=== PATIENT | male | born 1960 | race Caucasian/White ===

== ENCOUNTER 2019-09-22 20:57 | Emergency (ER) | payer OTHER, SELFPAY ==
[2019-09-22 20:58] VITALS: BP 129/99; BP 167/99; PULSE 85; RESP 16; RESP 18; TEMP 38.4; O2SAT 93; BMI 35.4
[2019-09-22 21:01] VITALS: O2SAT 95
[2019-09-22 21:18] VITALS: O2SAT 97
--- NOTE | 2019-09-22 21:45 | RAD_ITS ---
STUDY: X-RAY CHEST REASON FOR EXAM: Male, 59 years old. Shortness of breath TECHNIQUE: Frontal view of the chest COMPARISON: None. FINDINGS: There are mild congestive changes noted. The lungs are otherwise clear. There are no pleural effusions. There is no pneumothorax. The heart is normal in size. The visualized osseous structures are within normal limits. RAD/Chest 1 View (Portable) IMPRESSION: Mild pulmonary vascular congestion Electronically Signed: Silvestre Brower, at 22:19 EDT Tel , Service support ,
[2019-09-22 21:59] LABS: ALB/GLOB Ratio 0.8 RATIO (0.9-2.4); AST(SGOT) 33 U/L (15-37); Alanine Aminotransfer ALT/SGPT 32 U/L (16-61); Albumin, Serum 3.3 g/dL (3.2-5.0); Alkaline Phosphatase 57 U/L (45-117); Anion Gap 8 (5-15); BUN 19 mg/dL (7-18); BUN/Creat Ratio 18.1 RATIO (10-20); Calcium,Total 8.4 mg/dL (8.5-10.1); Chloride 106 mmol/L (98-107); Creatinine, Serum 1.05 mg/dL (0.70-1.30); EST Glomerular Filtration Rate 77 mL/min (>60); Est Glom Filt Rate - Afr Amer 93 mL/min (>60); Estimated Creatinine Clearance 80.15 ml/min; Globulin 3.9 g/dL (2.2-4.2); Glucose 99 mg/dL (74-106); Lactic Acid 0.9 mmol/L (0.4-1.9); Potassium 3.7 mmol/L (3.5-5.1); Protein, Total 7.2 g/dL (6.4-8.2); Sodium Level 137 mmol/L (136-145)
[2019-09-22 22:05] VITALS: BP 151/94; PULSE 82; RESP 14; TEMP 38.4; O2SAT 97
[2019-09-22 22:06] VITALS: BP 151/94; PULSE 84; RESP 14; O2SAT 97
[2019-09-22 22:10] LABS: International Normalized Ratio 1.1; Prothrombin Time (Protime)PT. 13.4 SECONDS (11.7-14.9)
[2019-09-22 22:11] LABS: Partial Thromboplast Time 34.1 Seconds (24.1-36.2)
[2019-09-22] MEDS: Acetaminophen 500 MG Tablet 1000 MG PO (22:13)
[2019-09-22] MEDS: 0.9% Normal Saline 1,000 ML 1000 ML IV (22:14)
[2019-09-22] MEDS: Azithromycin 250 MG Tablet 500 MG PO (22:16)
[2019-09-22] MEDS: Amox/Clavulanate 875 MG Tablet PO (22:17)
[2019-09-22 22:27] LABS: Absolute Lymphocyte Count 0.72 X10^3/uL (0.83-4.51); Absolute Neutrophil Count 1.7 X10^3/uL (2.0-7.7); Basophil# 0.01 X10^3/uL; Basophil% 0.4 % (0-1); Eosinophil# 0.01 X10^3/uL; Eosinophils% 0.4 % (0-5); Hematocrit 46.4 % (40-54); Hemoglobin 15.3 g/dL (13.0-16.5); Lymphocyte # 0.72 X10^3/ul (4.0); Lymphocyte % 27.3 % (19-41); Mean Corpuscular Hgb 28.9 pg (27.0-32.0); Mean Corpuscular Volume 87.5 fL (80-94); Mean Platelet Vol. 10.9 fl (6.2-12.0); Monocyte# 0.16 X10^3/uL; Monocyte% 6.1 % (0-10); NRBC Flagged by Analyzer 0 % (0-5); Neutrophil # 1.72 X10^3/uL (2.7-7.7); POSITIVE COUNT YES; POSITIVE MORPHOLOGY YES; Platelet Count 143 K/mm3 (150-450); RBC Distribution Width CV 12.9 % (11.6-14.6); RBC Distribution Width SD 40.9 fl (35.1-43.9); White Blood Count 2.6 K/mm3 (4.4-11.0)
[2019-09-22 22:28] LABS: Differential Indicated SCAN CRITERIA MET
--- NOTE | 2019-09-22 22:41 | ED.VIS.GEN ---
History of Present Illness Chief Complaint: Shortness of Breath Informant: Patient Narrative: Patient states that last Saturday he tested positive for SARS COVID-19. He states that he really has not had much shortness of breath. He has had a cough and fever. Will concern today is that when he would fall asleep he would startle himself awake gasping for breath. He states he was laying on his back most of the time. He has been eating and drinking okay. No rashes. States his urine is of normal color. No known lung conditions. He is otherwise a very healthy Stewart gentleman. Past Medical History - Allergies and Home Meds Allergies/Adverse Reactions: Allergies No Known Allergies Allergy (Verified 09/22/19 20:58) Primary Care Physician: Oscar Forte DO [Primary Care Provider] - Smoking Status: Never smoker Review of Systems General: Reports: Fever, Malaise. Denies: Chills, Sweats Eyes: Denies: Visual changes - bilaterally, Diplopia ENT: Denies: Rhinorrhea, Sore throat Cardiovascular: Denies: Chest pain, Palpitations Respiratory: Reports: Dyspnea, Cough, Paroxysmal nocturnal dyspnea. Denies: Dyspnea on exertion, Orthopnea Gastrointestinal: Denies: Abdominal pain, Nausea, Vomiting, Diarrhea, Melena, Hematochezia Genitourinary: Denies: Dysuria, Hematuria, Frequency Musculoskeletal: Reports: Myalgias. Denies: Back pain, Extremity Pain Skin: Denies: Rash, Wounds Neurological: Reports: Headache. Denies: Weakness, Numbness Physical Exam Vital Signs/Narrative: Vital Signs Temp Pulse Resp BP Pulse Ox 09/22/19 22:06 84 14 151/94 H 97 09/22/19 22:05 101.2 F H 82 14 151/94 H 97 09/22/19 21:18 97 09/22/19 20:58 101.2 F H 85 16 129/99 H 93 Inital Vital Signs reviewed: Yes General: Well nourished, Well developed, No Acute Distress Head: Normocephalic, Atraumatic Eyes: Perrl, EOMI ENT: Moist mucous membranes, No rhinorrhea Neck: Supple, Nontender Cardiovascular: Regular rate, Regular rhythm, No murmurs Respiratory: No distress, CTA bilaterally, Chest nontender Abdomen: Soft, Nontender, Nondistended, Normal bowel sounds Back: Nontender, Normal Inspection Extremities: Nontender, No edema Skin: Normal color, No rash Neurological: Alert, Oriented x3, Cranial nerves II-XII grossly intact, Normal Strength, Normal Sensation Psychological: Normal affect, Normal Mood Diagnostic/Tx/Re-eval Clinical Impression(s) from Imaging Studies Chest X-Ray 09/22/19 21:45 IMPRESSION: Mild pulmonary vascular congestion Electronically Signed: Silvestre Brower, at 22:19 EDT Tel , Service support , Laboratory Last Values WBC 2.6 K/mm3 (4.4-11.0) L 09/22/19 21:12 RBC 5.30 M/mm3 (4.6-6.2) 09/22/19 21:12 Hgb 15.3 g/dL (13.0-16.5) 09/22/19 21:12 Hct 46.4 % (40-54) 09/22/19 21:12 MCV 87.5 fL (80-94) 09/22/19 21:12 MCH 28.9 pg (27.0-32.0) 09/22/19 21:12 MCHC 33.0 g/dL (32-36) 09/22/19 21:12 RDW Std Deviation 40.9 fl (35.1-43.9) 09/22/19 21:12 RDW Coeff of Carina 12.9 % (11.6-14.6) 09/22/19 21:12 Plt Count 143 K/mm3 (150-450) L 09/22/19 21:12 MPV 10.9 fl (6.2-12.0) 09/22/19 21:12 Immature Gran % (Auto) 0.800 % (0.0-0.9) 09/22/19 21:12 Neut % (Auto) 65.0 % (47-70) 09/22/19 21:12 Lymph % (Auto) 27.3 % (19-41) 09/22/19 21:12 [place] % (Auto) 6.1 % (0-10) 09/22/19 21:12 Eos % (Auto) 0.4 % (0-5) 09/22/19 21:12 Baso % (Auto) 0.4 % (0-1) 09/22/19 21:12 Absolute Neuts (auto) 1.7 X10^3/uL (2.0-7.7) L 09/22/19 21:12 Absolute Lymphs (auto) 0.72 X10^3/uL (0.83-4.51) L 09/22/19 21:12 Nucleated RBC % 0 % (0-5) 09/22/19 21:12 PT 13.4 SECONDS (11.7-14.9) 09/22/19 21:38 INR 1.1 09/22/19 21:38 APTT 34.1 Seconds (24.1-36.2) 09/22/19 21:38 Sodium 137 mmol/L (136-145) 09/22/19 21:12 Potassium 3.7 mmol/L (3.5-5.1) 09/22/19 21:12 Chloride 106 mmol/L (98-107) 09/22/19 21:12 Carbon Dioxide 23.0 mmol/L (21.0-32.0) 09/22/19 21:12 Anion Gap 8 (5-15) 09/22/19 21:12 BUN 19 mg/dL (7-18) H 09/22/19 21:12 Creatinine 1.05 mg/dL (0.70-1.30) 09/22/19 21:12 Estim Creat Clear Calc 80.15 ml/min 09/22/19 21:12 Est GFR (MDRD) Af Amer 93 mL/min (>60) 09/22/19 21:12 Est GFR (MDRD) Non-Af 77 mL/min (>60) 09/22/19 21:12 BUN/Creatinine Ratio 18.1 RATIO (10-20) 09/22/19 21:12 Glucose 99 mg/dL (74-106) 09/22/19 21:12 Lactic Acid 0.9 mmol/L (0.4-1.9) 09/22/19 21:12 Calcium 8.4 mg/dL (8.5-10.1) L 09/22/19 21:12 Total Bilirubin 0.50 mg/dL (0.20-1.00) 09/22/19 21:12 AST 33 U/L (15-37) 09/22/19 21:12 ALT 32 U/L (16-61) 09/22/19 21:12 Alkaline Phosphatase 57 U/L (45-117) 09/22/19 21:12 Troponin I < 0.015 ng/mL (<0.045) 09/22/19 21:12 Total Protein 7.2 g/dL (6.4-8.2) 09/22/19 21:12 Albumin 3.3 g/dL (3.2-5.0) 09/22/19 21:12 Globulin 3.9 g/dL (2.2-4.2) 09/22/19 21:12 Albumin/Globulin Ratio 0.8 RATIO (0.9-2.4) L 09/22/19 21:12 - Medical Decision Making Patient received a liter of IV fluids and Tylenol. He also received Augmentin and azithromycin. His chest x-ray is consistent with bilateral pneumonia which is consistent with his COVID-19. He has a slight leukopenia. Other cell lines are normal. Electrolytes are normal. On room air he is 94% at rest and with ambulation he does not get dyspneic and his pulse ox stays about 94 to 95%. Think the patient has a excellent chance of recovery. All indicators at this time are suggestive that he will continue to do well. I am going to prescribe him Augmentin and azithromycin at home. I will also write for an albuterol MDI. ED Disposition - Plan for ED Patient: Disposition: Home or Assisted Living Diagnosis: COVID-19, Bilateral pneumonia Prescriptions: Amox/Clavulanate Tablet [Augmentin Tablet] 875 mg PO Q12H #19 tab Transmission Status: Pending to [facility] Albuterol Inhaler [Ventolin Hfa] 2 puff INHALATION Q4H PRN PRN #1 inhaler PRN Reason: Wheezing Transmission Status: Pending to [facility] Azithromycin [Zithromax] 250 mg PO DAILY #4 tab Transmission Status: Pending to [facility] Referrals: Oscar Forte, DO [Primary Care Provider] - As Needed
[2019-09-22 23:00] LABS: Differential Comment SCANNED
[2019-09-22 23:16] VITALS: BP 146/73; PULSE 59; RESP 14; O2SAT 97
== END 2019-09-22 23:24 | disposition home or self-care (01) ==
PROVIDERS: Emergency Provider Emergency Medicine; PCP Family Medicine
DX: U07.1 COVID-19 (principal); J12.89 Other viral pneumonia
CPT/HCPCS: 71045; 80053; 83605; 84484; 85025; 85610; 85730; 96360; 99285; J7030

== ENCOUNTER 2019-09-23 16:42 | Inpatient (IN) | payer OTHER, SELFPAY ==
[2019-09-22 20:58] VITALS: BMI 35.4
[2019-09-23 16:44] VITALS: BP 144/90; PULSE 81; RESP 22; TEMP 38.3; O2SAT 96; BMI 35.0
[2019-09-23 16:49] VITALS: BP 144/90; PULSE 79; RESP 20; TEMP 38.3; O2SAT 96
--- NOTE | 2019-09-23 17:20 | EKG12_ITS ---
Test Reason : SOB Blood Pressure : / mmHG Vent. Rate : 078 BPM Atrial Rate : 078 BPM P-R Int : 184 ms QRS Dur : 106 ms QT Int : 378 ms P-R-T Axes : 032 -44 027 degrees QTc Int : 430 ms Sinus rhythm with occasional Premature ventricular complexes Left axis deviation Abnormal ECG Confirmed by DAELA ADORNO ([id number]), graphics editor PAULINA ROJAS ([id number]) on 09/28/2019 11:31:49 AM Referred By: MICHEL Confirmed By:ADELA ADORNO
--- NOTE | 2019-09-23 17:21 | CT_ITS ---
STUDY: CTA CHEST REASON FOR EXAM: Male, 59 years old. SHORT OF BREATH, POSITIVE COVID-19 RADIATION DOSAGE (If Supplied By Facility): CTDIvol = ( 16.23 ) mGy, DLP = ( 552.91 ) mGycm TECHNIQUE: The examination was performed with the intravenous administration of 100ml isovue 370. Post-processing of the angiographic images was performed, with multiplanar reformation and 3D reconstruction. Individualized dose optimization techniques were used for this CT. COMPARISON: None. FINDINGS: There are scattered bilateral groundglass opacities throughout the lungs there is minimal dependent consolidation within the lower lobes associated with dependent groundglass opacities. Normal enhancement of the main pulmonary artery and right and left pulmonary arteries. Normal enhancement of the bilateral peripheral pulmonary arteries. There is no demonstrated pulmonary embolism. Normal thoracic aorta and visualized great vessels. There is no demonstrated aortic dissection. Normal heart and pericardium. There are prominent mediastinal and hilar lymph nodes, likely reactive. Normal visualized trachea and bronchi. Normal chest wall structures. There are degenerative changes of thoracic spine. The limited images of the upper abdomen demonstrate a diffusely low in attenuation liver consistent with fatty infiltration. CT/CTA Chest W/WO Contrast IMPRESSION: No demonstrated pulmonary embolism or arterial dissection. Multifocal groundglass opacities associated with minimal dependent consolidation within the lower lobes with an appearance suggestive of multifocal viral pneumonia. Fatty infiltration of the liver Electronically Signed: Mary Ellen Posada MD at 18:32 EDT Tel , Service support ,
--- NOTE | 2019-09-23 17:23 | ED.VIS.FLU ---
History of Present Illness Chief Complaint: Shortness of Breath Informant: Patient, EMS Associated Symptoms: Cough, Fever Narrative: Patient is a 59-year-old male who was recently diagnosed with COVID-19. Patient is on day 9 of his illness. He was seen in the ER yesterday because of shortness of breath. He was discharged home but did have bilateral pneumonia. He was not hypoxic at that time. Today patient is presenting because he is having worsening shortness of breath. He came via squad. Patient was 90% for EMS and placed on 2 L of oxygen. He notes he does feel much better with oxygen. Patient states he just feels like he is constantly having to work hard to breathe. He did initially feel better for about 2 hours this morning but now feels even worse. He states he has had decreased appetite especially today. He said decreased his bowel movements but attributes that to his decreased appetite over the past week. He is not had a fever today. He denies any vomiting but has had some upset stomach. He denies any other complaints at this time. He denies any other medical history. Past Medical History - Allergies and Home Meds Allergies/Adverse Reactions: Allergies No Known Allergies Allergy (Verified 09/22/19 20:58) Primary Care Physician: Oscar Forte DO [Primary Care Provider] - Past Medical History: None Surgical History: noncontributory Lives: Spouse/ Significant Other Smoking Status: Never smoker Review of Systems General: Reports: Fever, Malaise. Denies: Chills, Sweats Cardiovascular: Denies: Chest pain, Palpitations Respiratory: Reports: Dyspnea, Cough, Dyspnea on exertion. Denies: Orthopnea Gastrointestinal: Denies: Abdominal pain, Nausea, Vomiting, Diarrhea, Melena, Hematochezia Genitourinary: Denies: Dysuria, Hematuria, Frequency Musculoskeletal: Denies: Swelling, Extremity Pain Skin: Denies: Rash Neurological: Denies: Headache, Weakness, Numbness Physical Exam Vital Signs/Narrative: Vital Signs Temp Pulse Resp BP Pulse Ox 09/23/19 16:49 101 F H 79 20 H 144/90 H 96 09/23/19 16:44 101 F H 81 22 H 144/90 H 96 Inital Vital Signs reviewed: Yes General: Well nourished, Well developed Head: Normocephalic, Atraumatic Eyes: Perrl, EOMI ENT: Moist mucous membranes, TM's clear Neck: Supple, Nontender, No JVD Cardiovascular: Regular rate, Regular rhythm, No murmurs Respiratory: No distress, Chest nontender, Diminished, - - Bibasilar crackles and expiratory wheezing of the upper right lung field Abdomen: Soft, Nontender, Nondistended, Normal bowel sounds Back: Nontender, Normal Inspection Extremities: Nontender, No edema. Negative for: Edema Skin: Normal color, No rash Neurological: Alert, Oriented x3, Cranial nerves II-XII grossly intact, Normal Strength, Normal Sensation Psychological: Normal affect Diagnostic/Tx/Re-eval Clinical Impression(s) from Imaging Studies Chest CTA 09/23/19 17:21 IMPRESSION: No demonstrated pulmonary embolism or arterial dissection. Multifocal groundglass opacities associated with minimal dependent consolidation within the lower lobes with an appearance suggestive of multifocal viral pneumonia. Fatty infiltration of the liver Electronically Signed: Mary Ellen Posada MD at 18:32 EDT Tel , Service support , Laboratory Data 09/23/19 09/23/19 09/23/19 16:45 16:45 16:45 WBC 2.8 L RBC 5.24 Hgb 15.1 Hct 46.1 MCV 88.0 MCH 28.8 MCHC 32.8 RDW Std Deviation 41.8 RDW Coeff of Carina 12.9 Plt Count 189 MPV 9.8 Immature Gran % (Auto) 0.700 Neut % (Auto) 73.5 H Lymph % (Auto) 21.1 [place] % (Auto) 4.3 Eos % (Auto) 0.0 Baso % (Auto) 0.4 Absolute Neuts (auto) 2.1 Absolute Lymphs (auto) 0.59 L Nucleated RBC % 0 Differential Comment SEE COMMENT Diff Path Review May foll Platelet Estimate ADEQUATE RBC Morphology NORM C+C PT 13.2 INR 1.1 Lactic Acid Troponin I < 0.015 09/23/19 17:30 WBC RBC Hgb Hct MCV MCH MCHC RDW Std Deviation RDW Coeff of Carina Plt Count MPV Immature Gran % (Auto) Neut % (Auto) Lymph % (Auto) [place] % (Auto) Eos % (Auto) Baso % (Auto) Absolute Neuts (auto) Absolute Lymphs (auto) Nucleated RBC % Differential Comment Diff Path Review Platelet Estimate RBC Morphology PT INR Lactic Acid 1.5 Troponin I - Rhythm Strip Rhythm Strip: Sinus Rhythm Rate: 78 Ectopy: PVC(s) - EKG Initial EKG Interpretation: Sinus Rhythm, - - Sinus rhythm at a rate of 78 Treatments: Ceftriazone Azithromycin Fluid Bolus: NS 1000ml O2 Sat with ambulation (%): 90 - Medical Decision Making Patient is evaluated for continued shortness of breath in the setting of recent COVID-19 infection. Patient was diagnosed with bilateral pneumonia yesterday in the ER but discharged home as he was not hypoxic and was doing little better. He was started antibiotics at that time. Today patient is on 2 L of oxygen. He does not go below 90% however he is symptomatic. Given his multifocal pneumonia septic work-up is ordered. It is largely negative. He does have a leukopenia but a normal lactate. He did obtain a CTA because of risk of thromboembolic disease with coronavirus and his worsening shortness of breath on day 9. This does not show any PE but does show multifocal viral pneumonia. Patient be admitted to the hospital for further supportive treatment. He is agreeable this plan. He is given Rocephin and azithromycin IV in the emergency room. He stable for the general medical floor at time of disposition. ED Disposition - Plan for ED Patient: Disposition: Acute Care Hospital [facility] Diagnosis: Hypoxia, Pneumonia due to COVID-19 virus Referrals: Oscar Forte DO [Primary Care Provider] -
--- NOTE | 2019-09-23 17:27 | NURSING ---
NO OLD EKGS
[2019-09-23 17:40] LABS: Absolute Lymphocyte Count 0.59 X10^3/uL (0.83-4.51); Absolute Neutrophil Count 2.1 X10^3/uL (2.0-7.7); Basophil# 0.01 X10^3/uL; Basophil% 0.4 % (0-1); Hematocrit 46.1 % (40-54); Hemoglobin 15.1 g/dL (13.0-16.5); Lymphocyte # 0.59 X10^3/ul (4.0); Lymphocyte % 21.1 % (19-41); Mean Corp Hgb Conc 32.8 g/dL (32-36); Mean Corpuscular Hgb 28.8 pg (27.0-32.0); Mean Platelet Vol. 9.8 fl (6.2-12.0); Monocyte# 0.12 X10^3/uL; Monocyte% 4.3 % (0-10); NRBC Flagged by Analyzer 0 % (0-5); Neutrophil # 2.05 X10^3/uL (2.7-7.7); Neutrophil % 73.5 % (47-70); POSITIVE DIFFERENTIAL YES; POSITIVE MORPHOLOGY YES; Platelet Count 189 K/mm3 (150-450); RBC Distribution Width CV 12.9 % (11.6-14.6); RBC Distribution Width SD 41.8 fl (35.1-43.9); Red Blood Count 5.24 M/mm3 (4.6-6.2); White Blood Count 2.8 K/mm3 (4.4-11.0)
[2019-09-23 17:43] LABS: International Normalized Ratio 1.1; Prothrombin Time (Protime)PT. 13.2 SECONDS (11.7-14.9)
[2019-09-23 17:58] LABS: Differential Indicated SCAN CRITERIA MET
[2019-09-23 18:04] LABS: Lactic Acid 1.5 mmol/L (0.4-1.9)
[2019-09-23 18:32] LABS: Platelet Estimate ADEQUATE (ADEQ); Red Cell Morphology NORM C+C NORMAL (NORM C&C)
[2019-09-23 18:50] VITALS: BP 132/86; PULSE 98; RESP 22; TEMP 37.9; O2SAT 98
--- NOTE | 2019-09-23 19:24 | HP.PCM_ITS ---
Problem List (1) Hypoxia Status: Acute (2) Pneumonia due to COVID-19 virus Status: Acute History of Present Illness Date of Admission: 09/23/19 Chief Complaint: Shortness of breath. The patient is a 59 year old M with no significant past medical history presented to the emergency room because of worsening shortness of breath with cough and fever. This patient was diagnosed with COVID-19 9 days ago. Initially, patient was tested just because the health department was in the neighborhood and he was tested. Couple of days later, he started complaining of shortness of breath, initially was mild, with moderate exertion, associated with dry cough without sputum production. His symptoms continue to get worse over the course of the last week, has been getting more short of breath, even with minimal exertion and sometimes even at rest, aggravated by any type of activity, associated with fever as well as dry cough and no relieving factors. Patient mentioned that he had fever of up to 102 Fahrenheit at home. He presented to the emergency room yesterday because of shortness of breath, was not febrile and was not hypoxic and he was discharged home on Augmentin and Zithromax. Patient returning back to the ED today because of no improvement and persistent fever. In the emergency department, patient was febrile, blood pressure and heart rate are stable, pulse ox was 96% on 2 L. CBC was remarkable for leukopenia, otherwise normal, absolute neutrophil count was normal. BMP from yesterday was unremarkable. EKG revealed normal sinus rhythm with PVCs, no acute ischemic changes. Troponin was negative. Lactic acid was normal yesterday and today. LFT was unremarkable yesterday. CTA chest done today and revealed no PE or dissection, revealed multifocal groundglass opacities on both lower lobes. Patient is being admitted for viral pneumonia due to COVID-19 with hypoxia. Past Medical History Allergies No Known Allergies Allergy (Verified 09/22/19 20:58) Home Medications: Ambulatory Orders Medication Instructions Recorded Albuterol Inhaler [Ventolin Hfa] 2 puff INHALATION Q4H PRN PRN #1 09/22/19 inhaler Amox/Clavulanate Tablet [Augmentin 875 mg PO Q12H #19 tab 09/22/19 Tablet] Azithromycin [Zithromax] 250 mg PO DAILY #4 tab 09/22/19 Surgical History: Surgical History (Last Updated 12/10/17 @ 13:13 by Priyanka Pacheco) History of appendectomy Z90.49 Surgical History: appendectomy Psychiatric History: No pertinent psych hx Lives: Spouse/ Significant Other Smoking Status: Never smoker Alcohol: None Drugs: None - *Family History Maternal Family History: Family History (Last Updated 12/10/17 @ 13:14 by Priyanka Pacheco) Father Cancer Sister Diabetes History Items: No pertinent history Paternal Family History: Family History (Last Updated 12/10/17 @ 13:14 by Priyanka Pacheco) Father Cancer Sister Diabetes History Items: No pertinent history Review of Systems Constitutional: Reports: Fever. Denies: Anorexia, Chills, Weakness Eyes: Denies: Blurred vision, Double vision, Drainage, Redness HEENT: Denies: Difficulty Hearing, Ear Pain, Eye Pain, Nasal Congestion, Sore Throat Cardiovascular: Denies: Chest Pain, Claudication, Chest Tightness, Heaviness, Light Headedness, Palpitations, Syncope Respiratory: Reports: Cough, Shortness of Breath, Shortness of breath at rest, Shortness of breath upon exertion. Denies: Sputum production, Wheezing Gastrointestinal: Denies: Abdominal Pain, Constipation, Diarrhea, Nausea, Vomiting Genitourinary: Denies: Dysuria, Frequency, Hematuria Musculoskeletal: Denies: Arm Pain, Back Pain, Foot Pain Skin: Denies: Dryness, Rash Neurological: Denies: Balance problems, Double vision, Change in Speech, Confusion, Headaches, Incoordination, Numbness Psychiatric: Denies: Anxiety, Depression Endocrine: Denies: Change in Body Habitus, Polydipsia, Polyuria VTE Information - Inpt Only VTE Present on Admission: No VTE Mechan Device Prophylaxis: None VTE Pharm Prophylaxis ordered?: Yes Patient Problems: Active and Suspected Problems (Last Reviewed 12/03/17 @ 18:22 by Mercedez Garza) Hypoxia (Acute) Pneumonia due to COVID-19 virus (Acute) - Physical Exam Vitals/I&O's: Vital Signs Temp Pulse Resp BP Pulse Ox 100.3 F H 98 22 H 132/86 H 98 09/23/19 18:50 09/23/19 18:50 09/23/19 18:50 09/23/19 18:50 09/23/19 18:50 Oxygen Flow Rate (L/min) 2 Oxygen Delivery Method Room Air Weight: 244 lb 4.355 oz Body Mass Index (BMI) 35.0 General: Alert, Oriented x3, Cooperative, No apparent distress HEENT: Atraumatic, PERRLA, EOMI, Normocephalic Oral: Moist Mucosa, No Gingival or Mucosal Lesions/ Ulcerations Neck: Supple, No JVD, Negative Carotid Bruits, Trachea Midline, Thyroid Normal Size and Texture Lungs: No rhonchi, No wheeze, Diminished, Rales, - - Decreased breath sounds at the bases, faint bilateral basal crackles. Cardiovascular: Regular rate, Regular Rhythm, Normal S1, Normal S2, PMI Normal Abdomen: Bowel Sounds Present, Soft, Non Tender, Non-Distended, No Hepato- splenomegaly Extremities: No clubbing, No cyanosis, No edema Skin: No rashes, No breakdown Lymphatic: No Cervical, Supraclavicular, or Inguinal Adenopathy Neurological: Cranial nerves II-XII grossly intact, Motor Exam 5/5 strength throughout Psych/Mental Status: Normal Affect, Appropriate, Alert and oriented to time, place, person, mood and affect Laboratory Results 09/23/19 16:45: WBC 2.8 L, RBC 5.24, Hgb 15.1, Hct 46.1, MCV 88.0, MCH 28.8, MCHC 32.8, RDW Std Deviation 41.8, RDW Coeff of Carina 12.9, Plt Count 189, MPV 9.8, Immature Gran % (Auto) 0.700, Neut % (Auto) 73.5 H, Lymph % (Auto) 21.1, [place] % (Auto) 4.3, Eos % (Auto) 0.0, Baso % (Auto) 0.4, Absolute Neuts (auto) 2.1, Absolute Lymphs (auto) 0.59 L, Nucleated RBC % 0, Differential Comment SEE COMMENT, Diff Path Review August foll, Platelet Estimate ADEQUATE, RBC Morphology NORM C+C 09/23/19 16:45: PT 13.2, INR 1.1 09/23/19 16:45: Troponin I < 0.015 09/23/19 17:30: Lactic Acid 1.5 Clinical Impression(s) from Imaging Studies Chest CTA 09/23/19 17:21 IMPRESSION: No demonstrated pulmonary embolism or arterial dissection. Multifocal groundglass opacities associated with minimal dependent consolidation within the lower lobes with an appearance suggestive of multifocal viral pneumonia. Fatty infiltration of the liver Electronically Signed: Mary Ellen Posada MD at 18:32 EDT Tel , Service support , Current Medications Azithromycin 500 mg/ Dextrose 255 mls @ 250 mls/hr IV X1 ONE Stop: 09/23/19 19:55 Assessment/Plan All Active Problems (Last Reviewed 12/03/17 @ 18:22 by Mercedez Garza) Hypoxia (Acute) Pneumonia due to COVID-19 virus (Acute) This is a 59 years old male patient presented to the emergency room because of worsening shortness of breath with fever, was diagnosed with COVID-19 9 days ago, came to the emergency department yesterday and he came back today because of worsening symptoms and he is being admitted for treatment. #1 acute bilateral viral pneumonia due to COVID-19: Patient tested +9 days ago. He was prescribed Augmentin and Zithromax yesterday. Came back today with worsening symptoms and fever. No evidence of sepsis or severe sepsis. He is febrile, blood pressure and heart rate are stable, requiring 2 L of oxygen. CTA chest reviewed, no PE or dissection, bilateral groundglass opacities. Blood work from today and yesterday reviewed. EKG reviewed as above. Troponin is negative. Plan: Admit to COVID-19 floor, COVID-19 precaution and isolation, start IV Rocephin and Zithromax, albuterol inhaler as needed, Tylenol PRN, Zofran PRN, check ESR and CRP, serum ferritin, CPK, repeat CBC and BMP after tomorrow. #2 hypoxia: Secondary to #1. He is requiring around 2 L of oxygen. Plan for close monitoring, albuterol inhaler as needed as above. #3 DVT prophylaxis: Subcu Lovenox. This note was generated with [employer] dictation software. It may contain incorrect words, spelling, and punctuation that were not noted in checking the note before signing. Inpatient E&M: [id number] Init Hosp L2
[2019-09-23] MEDS: Ceftriaxone 1 GM/50 ML BAG IV (19:42)
[2019-09-23 19:57] VITALS: BMI 34.2
[2019-09-23 20:02] VITALS: BMI 34.3
--- NOTE | 2019-09-23 20:04 | ED.RN ---
urine sample sent.
[2019-09-23 20:05] LABS: Bacteria 0 SEEN /hpf (None Seen); Mucous, Urine 0 SEEN /hpf (<or=2+); Red Blood Cells-Urine 0 SEEN /hpf (0-5); Squamous Epithelial Cells - UA 0 SEEN /hpf (0-5); White Blood Cells 0 SEEN /hpf (0-5)
[2019-09-23 20:14] VITALS: BP 160/88; PULSE 76; RESP 20; TEMP 38; O2SAT 99
[2019-09-23 20:19] LABS: Color, Urine Yellow (Yellow); Glucose, Dipstick Normal (Normal); Ketone-Dipstick Negative (Negative); Leukocyte Esterase-Dipstick Negative /ul (Negative); Nitrite-Dipstick Negative (Negative); Occult Blood-Urine Negative /ul (Negative); Protein-Dipstick 30 mg/dl (Negative); Urine Bilirubin Dipstick Negative (Negative); Urine Clarity Clear (Clear); Urine Urobilinogen 4 mg/dl (Normal); Urine pH 6.5 (5.0 - 8.0)
[2019-09-23 20:30] LABS: Erythrocyte Sedimentation Rate 30 mm/hr (0-20)
[2019-09-23] MEDS: Acetaminophen 325 MG Tablet 650 MG PO (20:31)
[2019-09-23 20:42] LABS: CPK Total, Creatine Kinase 125 U/L (39-308); Ferritin 963 ng/mL (26-388)
[2019-09-23 21:41] VITALS: BP 163/95; PULSE 80; RESP 18; TEMP 37.8; O2SAT 97
[2019-09-23 23:24] LABS: LDH 257 U/L (87-241)
[2019-09-24 00:04] LABS: Procalcitonin 0.06 ng/mL (0.00-0.09)
[2019-09-24 03:00] VITALS: BP 164/79; PULSE 84; RESP 20; TEMP 37.7; O2SAT 94
[2019-09-24] MEDS: Acetaminophen 325 MG Tablet 650 MG PO ×2 (03:01→12:42)
[2019-09-24] MEDS: 0.9% Saline Lock 10 ML Syringe IV (03:01)
[2019-09-24 08:12] LABS: D-Dimer Quantitative (DVT/PE) 0.64 FEU/ug/m (0.27-0.49)
[2019-09-24] MEDS: Enoxaparin 40 MG/0.4 ML Syringe SC ×2 (08:14→21:28)
[2019-09-24 08:15] VITALS: BP 136/77; PULSE 77; RESP 16; TEMP 37.5; O2SAT 94
[2019-09-24 10:00] LABS: Pathologist Review Reviewed
--- NOTE | 2019-09-24 10:23 | PCM.HP.ID ---
Problem List (1) Pneumonia due to COVID-19 virus Status: Acute Reason for Consult: covid Consulted by: Dr. Barrera History of Present Illness: The patient is a 59 year old M, Stewart, presented to ED with several days of dyspnea. COVID cases recently in his community, lives with his who has been feeling fine. For past week, c/o fever, chills, aches, lost of smell, loss of appetite, nausea, headache, some cough. Now with new dyspnea, some white sputum. No chest pain, no diarrhea. Went to ED here 09/21, given azithro and augmentin, sx worsened, came back, admitted 09/22 on azithro/ceftriaxone. Feeling about the same, fever overnight. Full ROS performed and neg except as noted above. - Medical History Surgical History: reviewed Allergies/Adverse Reactions: Allergies No Known Allergies Allergy (Verified 09/22/19 20:58) Home Medications: Ambulatory Orders Medication Instructions Recorded Albuterol Inhaler [Ventolin Hfa] 2 puff INHALATION Q4H PRN PRN #1 09/22/19 inhaler Amox/Clavulanate Tablet [Augmentin 875 mg PO Q12H #19 tab 09/22/19 Tablet] Azithromycin [Zithromax] 250 mg PO DAILY #4 tab 09/22/19 - Social History Lives: with Tobacco Use: non-smoker Vital Signs Temp Pulse Resp BP Pulse Ox 99.5 F H 77 16 136/77 H 94 09/24/19 08:15 09/24/19 08:15 09/24/19 08:15 09/24/19 08:15 09/24/19 08:15 Oxygen Flow Rate (L/min) 2 Oxygen Delivery Method Nasal Cannula Weight: 108.3 kg Body Mass Index (BMI) 34.2 Laboratory Tests Past 24 Hrs 09/23/19 09/23/19 09/23/19 16:45 16:45 16:45 WBC 2.8 L RBC 5.24 Hgb 15.1 Hct 46.1 MCV 88.0 MCH 28.8 MCHC 32.8 RDW Std Deviation 41.8 RDW Coeff of Carina 12.9 Plt Count 189 MPV 9.8 Immature Gran % (Auto) 0.700 Neut % (Auto) 73.5 H Lymph % (Auto) 21.1 Mclennan % (Auto) 4.3 Eos % (Auto) 0.0 Baso % (Auto) 0.4 Absolute Neuts (auto) 2.1 Absolute Lymphs (auto) 0.59 L Nucleated RBC % 0 Differential Comment SEE COMMENT Diff Path Review Reviewed Platelet Estimate ADEQUATE RBC Morphology NORM C+C ESR PT 13.2 INR 1.1 D-Dimer Quant (PE/DVT) Lactic Acid Ferritin Lactate Dehydrogenase Total Creatine Kinase Troponin I < 0.015 C-React Prot Ext Range Procalcitonin Urine Color Urine Clarity Urine pH Ur Specific [place] Urine Protein Urine Glucose (UA) Urine Ketones Urine Occult Blood Urine Nitrite Urine Bilirubin Urine Urobilinogen Ur Leukocyte Esterase Urine RBC Urine WBC Ur Squamous Epith Cells Urine Bacteria Urine Mucus 09/23/19 09/23/19 09/23/19 16:45 16:45 16:45 WBC RBC Hgb Hct MCV MCH MCHC RDW Std Deviation RDW Coeff of Carina Plt Count MPV Immature Gran % (Auto) Neut % (Auto) Lymph % (Auto) Mclennan % (Auto) Eos % (Auto) Baso % (Auto) Absolute Neuts (auto) Absolute Lymphs (auto) Nucleated RBC % Differential Comment Diff Path Review Platelet Estimate RBC Morphology ESR 30 H PT INR D-Dimer Quant (PE/DVT) Lactic Acid Ferritin 963 H Lactate Dehydrogenase 257 H Total Creatine Kinase 125 Troponin I C-React Prot Ext Range 87.20 H Procalcitonin Urine Color Urine Clarity Urine pH Ur Specific [place] Urine Protein Urine Glucose (UA) Urine Ketones Urine Occult Blood Urine Nitrite Urine Bilirubin Urine Urobilinogen Ur Leukocyte Esterase Urine RBC Urine WBC Ur Squamous Epith Cells Urine Bacteria Urine Mucus 09/23/19 09/23/19 09/23/19 17:30 19:00 23:10 WBC RBC Hgb Hct MCV MCH MCHC RDW Std Deviation RDW Coeff of Carina Plt Count MPV Immature Gran % (Auto) Neut % (Auto) Lymph % (Auto) Mclennan % (Auto) Eos % (Auto) Baso % (Auto) Absolute Neuts (auto) Absolute Lymphs (auto) Nucleated RBC % Differential Comment Diff Path Review Platelet Estimate RBC Morphology ESR PT INR D-Dimer Quant (PE/DVT) Lactic Acid 1.5 Ferritin Lactate Dehydrogenase Total Creatine Kinase Troponin I C-React Prot Ext Range Procalcitonin 0.06 Urine Color Yellow Urine Clarity Clear Urine pH 6.5 Ur Specific [place] 1.010 Urine Protein 30 H Urine Glucose (UA) Normal Urine Ketones Negative Urine Occult Blood Negative Urine Nitrite Negative Urine Bilirubin Negative Urine Urobilinogen 4 H Ur Leukocyte Esterase Negative Urine RBC 0 SEEN Urine WBC 0 SEEN Ur Squamous Epith Cells 0 SEEN Urine Bacteria 0 SEEN Urine Mucus 0 SEEN 09/24/19 03:00 WBC RBC Hgb Hct MCV MCH MCHC RDW Std Deviation RDW Coeff of Carina Plt Count MPV Immature Gran % (Auto) Neut % (Auto) Lymph % (Auto) Mclennan % (Auto) Eos % (Auto) Baso % (Auto) Absolute Neuts (auto) Absolute Lymphs (auto) Nucleated RBC % Differential Comment Diff Path Review Platelet Estimate RBC Morphology ESR PT INR D-Dimer Quant (PE/DVT) 0.64 H* Lactic Acid Ferritin Lactate Dehydrogenase Total Creatine Kinase Troponin I C-React Prot Ext Range Procalcitonin Urine Color Urine Clarity Urine pH Ur Specific [place] Urine Protein Urine Glucose (UA) Urine Ketones Urine Occult Blood Urine Nitrite Urine Bilirubin Urine Urobilinogen Ur Leukocyte Esterase Urine RBC Urine WBC Ur Squamous Epith Cells Urine Bacteria Urine Mucus - Other Studies Radiology: [] reviewed Other Studies: [] Route of nutrition/ use of supplements: [] Nutritional Intake: [] IV Site: [] William Catheter: [] - Physical Exam General: Alert, Oriented x3, Cooperative, No apparent distress HEENT: Atraumatic, PERRLA, EOMI Neck: Supple, No Nodes Lungs: Clear to auscultation, Diminished Cardiovascular: Regular rate, Regular Rhythm, No murmurs Abdomen: Soft, Non Tender, Non-Distended Extremities: No edema Skin: No rashes IV Site: Peripheral, without redness Musculoskeletal: No Tenderness to Palpation of Joints or Extremities Neurological: Cranial nerves II-XII grossly intact - Assessment/Plan Antibiotics: [] Assessment/Plan: [] Active and Suspected Problems (Last Reviewed 12/03/17 @ 18:22 by Mercedez Garza) Hypoxia (Acute) Pneumonia due to COVID-19 virus (Acute) COVID with hypoxia - will order sputum cx. D-dimer was 0.6. PCT 0.06. On 2L. Day 3 of azithro today. Also on ceftriaxone. Overall low suspicion for CAP on top of covid, but will see what sputum shows. Counseled him that should monitor for symptoms and isolate for next 2 weeks starting from date of admission 09/22. With covid, would increase prophylactic lovenox to bid. Will follow, thank you, d/w Dr. Barrera.
--- NOTE | 2019-09-24 10:55 | CASEMGMT ---
RN CM ASSESSMENT Call to pt's room. RN CM assessment completed via phone conversation. Pt is A/O at this time and answers all questions appropriately. Care providers, pharmacy, and demographics verified/updated at this time. PCP: Dr Oscar Forte Specialists: None Preferred Pharmacy: [facility] in [place] Insurance: [employer] Prescription Benefit: Pt is not sure if the [employer] will assist with prescriptions or not. He states he has someone he can call to inquire about this Living Will/HPOA: States does not have LW or HCPOA . Interested in more information. Information given to pt's RN on advanced directives and Social Service rac card with number to give to pt when she goes into his room next. Pt made aware RN will bring information to him and made aware he can call if chooses in the future to utilize [facility] social work for advanced directive completion once he is cleared of COVID-19 infection. Pt voices understanding. LNOK: , Eloisa. 4 adult children. Living Arrangements: Lives with his in 2-story home. Denies difficulty with stairs. Works full-time. Independent. Reviewed Home isolation precautions and quarantine recommendations with pt at this time and he was made aware he will be given handouts with this information at discharge as well. Recommended that his self-quarantine for 2 weeks as well as per Dr Bauman instructions, beginning 09/22. Pt states they have cloth masks at home, as his makes them and they have disinfectants for cleaning the home. Pt made aware that a couple hospital masks can be sent home with him at discharge and can be worn by him on his ride home. Staff made aware to send a couple masks home with pt at discharge. Pt states they also have 2 bathrooms. Recommended they use separate bathrooms and bedrooms during quarantine time. He states they have good family support and several people that can help with bringing groceries. Transportation: Pt usually hires drives. States used [facility] for transport to [facility]. Pt may need to utilize them at discharge as well d/t COVID-19 positive. DME: Denies using any DME. Does not have Home O2. States does have reliable electricity source at home if he would qualify for Home O2 @ discharge. Denies preference of DME company. Pt made aware [id number] cost @ [employer] for one-month supply of oxygen is approx $159. Pt states this is affordable and he would be willing to pay for this if needed. HHC/SNF: No history of either. No needs identified. Pt wishes to return home and states has no concerns with going home at time of discharge. CM to follow for home oxygen needs and any further discharge planning/needs. Pt voices no further concerns/needs at this time. Advised pt to ask for CM if any further questions/concerns/needs arise. Voices understanding. PLAN: Home Pt may qualify for Home O2 at discharge. Able to pay [id number]-ie-[id number] cost for oxygen if needed. Agreeable to [employer]. Follow for Home meds/cost at discharge, as pt is not sure if [employer] will assist with prescription costs. Landon MCKINLEY RN CM
--- NOTE | 2019-09-24 12:04 | PN_ITS ---
Patient Problems: Active and Suspected Problems (Last Reviewed 12/03/17 @ 18:22 by Mercedez Garza) Hypoxia (Acute) Pneumonia due to COVID-19 virus (Acute) Reason for Visit: COVID-19 Subjective: Feeling better. Breathing better. Still weak. Vitals/I&O's: Vital Signs Temp Pulse Resp BP Pulse Ox 37.5 C H 77 16 136/77 H 94 09/24/19 08:15 09/24/19 08:15 09/24/19 08:15 09/24/19 08:15 09/24/19 08:15 Oxygen Flow Rate (L/min) 2 Oxygen Delivery Method Nasal Cannula Weight: 108.3 kg Body Mass Index (BMI) 34.2 Intake and Output for Last 24 Hours 09/22/19 09/23/19 09/24/19 23:59 23:59 23:59 Intake Total 425 / 425 120 / 120 Balance 425 / 425 120 / 120 General: Alert, No apparent distress HEENT: Atraumatic, Normocephalic Oral: Moist Mucosa, No Gingival or Mucosal Lesions/ Ulcerations Neck: No Nodes, Thyroid Normal Size and Texture Lungs: Normal air movement, - - crackles in bases Cardiovascular: Regular rate, Regular Rhythm, Normal S1, Normal S2 Abdomen: Bowel Sounds Present, Soft, Non Tender, Non-Distended Extremities: No edema, No Calf Tenderness Psych/Mental Status: Normal Affect, Appropriate Laboratory Results 09/23/19 16:45: WBC 2.8 L, RBC 5.24, Hgb 15.1, Hct 46.1, MCV 88.0, MCH 28.8, MCHC 32.8, RDW Std Deviation 41.8, RDW Coeff of Carina 12.9, Plt Count 189, MPV 9.8, Immature Gran % (Auto) 0.700, Neut % (Auto) 73.5 H, Lymph % (Auto) 21.1, Mcminn % (Auto) 4.3, Eos % (Auto) 0.0, Baso % (Auto) 0.4, Absolute Neuts (auto) 2.1, Absolute Lymphs (auto) 0.59 L, Nucleated RBC % 0, Differential Comment SEE COMMENT, Diff Path Review Reviewed, Platelet Estimate ADEQUATE, RBC Morphology NORM C+C 09/23/19 16:45: PT 13.2, INR 1.1 09/23/19 16:45: Troponin I < 0.015 09/23/19 16:45: ESR 30 H 09/23/19 16:45: Ferritin 963 H, Total Creatine Kinase 125, C-React Prot Ext Range 87.20 H 09/23/19 16:45: Lactate Dehydrogenase 257 H 09/23/19 17:30: Lactic Acid 1.5 09/23/19 19:00: Urine Color Yellow, Urine Clarity Clear, Urine pH 6.5, Ur Specific [place] 1.010, Urine Protein 30 H, Urine Glucose (UA) Normal, Urine Ketones Negative, Urine Occult Blood Negative, Urine Nitrite Negative, Urine Bilirubin Negative, Urine Urobilinogen 4 H, Ur Leukocyte Esterase Negative, Urine RBC 0 SEEN, Urine WBC 0 SEEN, Ur Squamous Epith Cells 0 SEEN, Urine Bacteria 0 SEEN, Urine Mucus 0 SEEN 09/23/19 23:10: Procalcitonin 0.06 09/24/19 03:00: D-Dimer Quant (PE/DVT) 0.64 H* Current Medications Acetaminophen (Tylenol) 650 mg PO Q6H PRN PRN PRN Reason: Pain Score 1-10/Temp > 100.7 F Last Admin: 09/24/19 03:01 Dose: 650 mg Documented by: Albuterol Sulfate (Proair Hfa (Sp) Surgery/Vent Pts) 2 puff INHALATION Q4H PRN PRN PRN Reason: Shortness of breath, wheezing Azithromycin (Zithromax) 250 mg PO Q24 [facility] Enoxaparin Sodium (Lovenox) 40 mg SC BID [facility] Sodium Chloride () 250 mls @ 15 mls/hr IV .[id number] PRN PRN Reason: Saline Flush Sodium Chloride () 250 mls @ 15 mls/hr IV .[id number] PRN PRN Reason: Additional IVPB Infusion Ceftriaxone Sodium (Rocephin) 1 gm in 50 mls @ 100 mls/hr IV Q24@2200 [facility] Nutritional Formula (Lactose Free) (Ensure Enlive) 120 ml PO 4X/DAY [facility] Last Admin: 09/24/19 08:14 Dose: 120 ml Documented by: Senna/Docusate Sodium (Senokot-S, Winsome-Colace) 2 tablet PO BID PRN PRN PRN Reason: Constipation Sodium Chloride () 10 - 40 ml IV UD PRN PRN Reason: SALINE FLUSH Last Admin: 09/24/19 03:01 Dose: 10 ml Documented by: Zolpidem Tartrate (Ambien (Generic)) 5 mg PO QHS PRN PRN PRN Reason: INSOMNIA STROKE Vital Signs/Narrative: Vital Signs Temp Pulse Resp BP Pulse Ox 09/24/19 08:15 37.5 C H 77 16 136/77 H 94 Medical Necessity - Tobacco Use Smoking Status: Never smoker Assessment/Plan All Active Problems (Last Reviewed 12/03/17 @ 18:22 by Mercedez Garza) Hypoxia (Acute) Pneumonia due to COVID-19 virus (Acute) 1. COVID-19 * on empiric abx * ID consult * monitor overnight to ensure doing well. * check ambulatory pulse ox prior to DC 2. VTE prophylaxis: LMWH Inpatient E&M: 36187 Subs Hosp L2
[2019-09-24 12:44] VITALS: BP 138/88; PULSE 80; RESP 18; TEMP 38.4; O2SAT 94
[2019-09-24 14:40] VITALS: PULSE 79; RESP 16; TEMP 37.5; O2SAT 94
[2019-09-24] MEDS: Azithromycin 250 MG Tablet PO (16:48)
[2019-09-24 16:49] VITALS: BP 158/92; PULSE 77; RESP 18; TEMP 37.4; O2SAT 94
[2019-09-24] MEDS: Ceftriaxone 1 GM/50 ML BAG IV (21:28)
[2019-09-24 21:30] VITALS: BP 160/93; PULSE 81; RESP 20; TEMP 37.9; O2SAT 94
--- NOTE | 2019-09-24 21:55 | NURSING ---
attempted to wean oxygen to room air. Patient desaturated to 89% on room air at rest. Placed back on 1L NC and pulse ox recovered to 93% on room air.
[2019-09-25] VITALS (8 sets, daily range): BP systolic 141–152; BP diastolic 78–90; PULSE 77–84; RESP 18–20; TEMP 36.9–38.2; O2SAT 91–98
[2019-09-25 04:34] LABS: Absolute Lymphocyte Count 0.55 X10^3/uL (0.83-4.51); Absolute Neutrophil Count 2.6 X10^3/uL (2.0-7.7); Basophil# 0.01 X10^3/uL; Basophil% 0.3 % (0-1); Differential Indicated SCAN CRITERIA MET; Hematocrit 42.8 % (40-54); Hemoglobin 14.4 g/dL (13.0-16.5); Lymphocyte # 0.55 X10^3/ul (4.0); Lymphocyte % 16.4 % (19-41); Mean Corp Hgb Conc 33.6 g/dL (32-36); Mean Corpuscular Hgb 29.1 pg (27.0-32.0); Mean Corpuscular Volume 86.5 fL (80-94); Mean Platelet Vol. 9.3 fl (6.2-12.0); NRBC Flagged by Analyzer 0 % (0-5); Neutrophil # 2.55 X10^3/uL (2.7-7.7); Neutrophil % 76.1 % (47-70); POSITIVE DIFFERENTIAL YES; POSITIVE MORPHOLOGY YES; Platelet Count 231 K/mm3 (150-450); RBC Distribution Width CV 12.7 % (11.6-14.6); Red Blood Count 4.95 M/mm3 (4.6-6.2); White Blood Count 3.4 K/mm3 (4.4-11.0)
[2019-09-25 04:45] LABS: ALB/GLOB Ratio 0.7 RATIO (0.9-2.4); AST(SGOT) 30 U/L (15-37); Alanine Aminotransfer ALT/SGPT 29 U/L (16-61); Albumin, Serum 2.9 g/dL (3.2-5.0); Alkaline Phosphatase 52 U/L (45-117); Anion Gap 7 (5-15); BUN 19 mg/dL (7-18); BUN/Creat Ratio 20.6 RATIO (10-20); Calcium,Total 8.4 mg/dL (8.5-10.1); Chloride 104 mmol/L (98-107); Creatinine, Serum 0.92 mg/dL (0.70-1.30); EST Glomerular Filtration Rate 90 mL/min (>60); Est Glom Filt Rate - Afr Amer 108 mL/min (>60); Estimated Creatinine Clearance 91.47 ml/min; Globulin 4.2 g/dL (2.2-4.2); Glucose 108 mg/dL (74-106); Potassium 3.7 mmol/L (3.5-5.1); Protein, Total 7.1 g/dL (6.4-8.2); Sodium Level 138 mmol/L (136-145)
[2019-09-25 05:19] LABS: Differential Comment SCANNED
[2019-09-25 09:24] LABS: Pathologist Review Reviewed
[2019-09-25] MEDS: Enoxaparin 40 MG/0.4 ML Syringe SC ×2 (09:42→21:28)
[2019-09-25] MEDS: Azithromycin 250 MG Tablet PO (09:42)
--- NOTE | 2019-09-25 10:21 | PCM.PN.HOSP ---
Patient Problems: Active and Suspected Problems (Last Reviewed 12/03/17 @ 18:22 by Mercedez Garza) Hypoxia (Acute) Pneumonia due to COVID-19 virus (Acute) Reason for Visit: COVID Subjective: Still weak. Doesn't feel ready to go home. Wants oxygen at home. Vitals/I&O's: Vital Signs Temp Pulse Resp BP Pulse Ox 37.6 C H 79 18 152/90 H 93 09/25/19 09:38 09/25/19 09:38 09/25/19 09:38 09/25/19 09:38 09/25/19 09:38 Oxygen Flow Rate (L/min) 1 Oxygen Delivery Method Nasal Cannula Weight: 108.3 kg Body Mass Index (BMI) 34.2 Intake and Output for Last 24 Hours 09/23/19 09/24/19 09/25/19 23:59 23:59 23:59 Intake Total 425 / 425 650 / 770 360 / 360 Balance 425 / 425 650 / 770 360 / 360 General: Alert, No apparent distress HEENT: Atraumatic, Normocephalic Oral: Moist Mucosa, No Gingival or Mucosal Lesions/ Ulcerations Neck: No Nodes, Trachea Midline Lungs: Clear to auscultation, Normal air movement, No rhonchi, No wheeze, No rales Cardiovascular: Regular rate, Regular Rhythm, Normal S1, Normal S2, No murmurs Abdomen: Bowel Sounds Present, Soft, Non Tender, Non-Distended Extremities: No edema, No Calf Tenderness Psych/Mental Status: Normal Affect, Appropriate Laboratory Results 09/25/19 04:20: WBC 3.4 L, RBC 4.95, Hgb 14.4, Hct 42.8, MCV 86.5, MCH 29.1, MCHC 33.6, RDW Std Deviation 40.0, RDW Coeff of Carina 12.7, Plt Count 231, MPV 9.3, Immature Gran % (Auto) 1.200 H, Neut % (Auto) 76.1 H, Lymph % (Auto) 16.4 L, [place] % (Auto) 6.0, Eos % (Auto) 0.0, Baso % (Auto) 0.3, Absolute Neuts (auto) 2.6, Absolute Lymphs (auto) 0.55 L, Nucleated RBC % 0, Differential Comment SCANNED, Diff Path Review Reviewed 09/25/19 04:20: Sodium 138, Potassium 3.7, Chloride 104, Carbon Dioxide 27.0, Anion Gap 7, BUN 19 H, Creatinine 0.92, Estim Creat Clear Calc 91.47, Est GFR (MDRD) Af Amer 108, Est GFR (MDRD) Non-Af 90, BUN/Creatinine Ratio 20.6 H, Glucose 108 H, Calcium 8.4 L, Total Bilirubin 0.50, AST 30, ALT 29, Alkaline Phosphatase 52, Total Protein 7.1, Albumin 2.9 L, Globulin 4.2, Albumin/Globulin Ratio 0.7 L Current Medications Acetaminophen (Tylenol) 650 mg PO Q6H PRN PRN PRN Reason: Pain Score 1-10/Temp > 100.7 F Last Admin: 09/24/19 12:42 Dose: 650 mg Documented by: Albuterol Sulfate (Proair Hfa (Sp) Surgery/Vent Pts) 2 puff INHALATION Q4H PRN PRN PRN Reason: Shortness of breath, wheezing Azithromycin (Zithromax) 250 mg PO Q24 [facility] Last Admin: 09/25/19 09:42 Dose: 250 mg Documented by: Enoxaparin Sodium (Lovenox) 40 mg SC BID [facility] Last Admin: 09/25/19 09:42 Dose: 40 mg Documented by: Sodium Chloride () 250 mls @ 15 mls/hr IV .[id number] PRN PRN Reason: Saline Flush Sodium Chloride () 250 mls @ 15 mls/hr IV .[id number] PRN PRN Reason: Additional IVPB Infusion Ceftriaxone Sodium (Rocephin) 1 gm in 50 mls @ 100 mls/hr IV Q24@2200 [facility] Last Infusion: 09/24/19 21:58 Dose: Infused Documented by: Nutritional Formula (Lactose Free) (Ensure Enlive) 120 ml PO 4X/DAY [facility] Last Admin: 09/25/19 09:42 Dose: 120 ml Documented by: Senna/Docusate Sodium (Senokot-S, Winsome-Colace) 2 tablet PO BID PRN PRN PRN Reason: Constipation Sodium Chloride () 10 - 40 ml IV UD PRN PRN Reason: SALINE FLUSH Last Admin: 09/24/19 03:01 Dose: 10 ml Documented by: Zolpidem Tartrate (Ambien (Generic)) 5 mg PO QHS PRN PRN PRN Reason: INSOMNIA STROKE Vital Signs/Narrative: Vital Signs Temp Pulse Resp BP Pulse Ox 09/25/19 09:38 37.6 C H 79 18 152/90 H 93 09/25/19 07:19 98 Medical Necessity - Tobacco Use Smoking Status: Never smoker Assessment/Plan All Active Problems (Last Reviewed 12/03/17 @ 18:22 by Mercedez Garza) Hypoxia (Acute) Pneumonia due to COVID-19 virus (Acute) 1. COVID-19 on empiric abx ID following still with fevers check ambulatory pulse ox prior to DC check overnight pulse ox, concern he may have LORENA. May need outpt PSG. pt has no insurance. I told him we could discharge and check his oxygen, he prefers to stay another night. 2. VTE prophylaxis: LMWH Inpatient E&M: 60147 Subs Hosp L2
--- NOTE | 2019-09-25 11:56 | PN.ID_ITS ---
Patient Problems: Active and Suspected Problems (Last Reviewed 12/03/17 @ 18:22 by Mercedez Garza) Hypoxia (Acute) Pneumonia due to COVID-19 virus (Acute) Subjective: Feeling better, less SOB, no fever - Physical Exam Vitals/I&O's: Vital Signs Temp Pulse Resp BP Pulse Ox 99.7 F H 79 18 152/90 H 93 09/25/19 09:38 09/25/19 09:38 09/25/19 09:38 09/25/19 09:38 09/25/19 09:38 Oxygen Flow Rate (L/min) 1 Oxygen Delivery Method Room Air Weight: 108.3 kg Body Mass Index (BMI) 34.2 Intake and Output for Last 24 Hours 09/23/19 09/24/19 09/25/19 23:59 23:59 23:59 Intake Total 425 / 425 650 / 770 360 / 360 Balance 425 / 425 650 / 770 360 / 360 General: Alert, Cooperative, No apparent distress Lungs: Clear to auscultation, Normal air movement, Diminished Cardiovascular: Regular rate, Regular Rhythm Abdomen: Soft, Non Tender, Non-Distended Skin: No rashes Laboratory Results 09/25/19 04:20: WBC 3.4 L, RBC 4.95, Hgb 14.4, Hct 42.8, MCV 86.5, MCH 29.1, MCHC 33.6, RDW Std Deviation 40.0, RDW Coeff of Carina 12.7, Plt Count 231, MPV 9.3, Immature Gran % (Auto) 1.200 H, Neut % (Auto) 76.1 H, Lymph % (Auto) 16.4 L , [place] % (Auto) 6.0, Eos % (Auto) 0.0, Baso % (Auto) 0.3, Absolute Neuts (auto) 2.6, Absolute Lymphs (auto) 0.55 L, Nucleated RBC % 0, Differential Comment SCANNED, Diff Path Review Reviewed 09/25/19 04:20: Sodium 138, Potassium 3.7, Chloride 104, Carbon Dioxide 27.0, Anion Gap 7, BUN 19 H, Creatinine 0.92, Estim Creat Clear Calc 91.47, Est GFR (MDRD) Af Amer 108, Est GFR (MDRD) Non-Af 90, BUN/Creatinine Ratio 20.6 H, Glucose 108 H, Calcium 8.4 L, Total Bilirubin 0.50, AST 30, ALT 29, Alkaline Phosphatase 52, Total Protein 7.1, Albumin 2.9 L, Globulin 4.2, Albumin/Globulin Ratio 0.7 L Current Medications Acetaminophen (Tylenol) 650 mg PO Q6H PRN PRN PRN Reason: Pain Score 1-10/Temp > 100.7 F Last Admin: 09/24/19 12:42 Dose: 650 mg Documented by: Albuterol Sulfate (Proair Hfa (Sp) Surgery/Vent Pts) 2 puff INHALATION Q4H PRN PRN PRN Reason: Shortness of breath, wheezing Azithromycin (Zithromax) 250 mg PO Q24 [facility]PLAC[facility] BY [facility] Stop: 09/26/19 23:59 Last Admin: 09/25/19 09:42 Dose: 250 mg Documented by: Enoxaparin Sodium (Lovenox) 40 mg SC BID REPLACED BY [facility] Last Admin: 09/25/19 09:42 Dose: 40 mg Documented by: Sodium Chloride () 250 mls @ 15 mls/hr IV .[id number] PRN PRN Reason: Saline Flush Sodium Chloride () 250 mls @ 15 mls/hr IV .[id number] PRN PRN Reason: Additional IVPB Infusion Nutritional Formula (Lactose Free) (Ensure Enlive) 120 ml PO 4X/DAY REPLACED BY [facility] Last Admin: 09/25/19 09:42 Dose: 120 ml Documented by: Senna/Docusate Sodium (Senokot-S, Winsome-Colace) 2 tablet PO BID PRN PRN PRN Reason: Constipation Sodium Chloride () 10 - 40 ml IV UD PRN PRN Reason: SALINE FLUSH Last Admin: 09/24/19 03:01 Dose: 10 ml Documented by: Zolpidem Tartrate (Ambien (Generic)) 5 mg PO QHS PRN PRN PRN Reason: INSOMNIA Medical Necessity - Tobacco Use Smoking Status: Never smoker Route of nutrition/ use of supplements: [] Nutritional Intake: [] IV Site: [] William Catheter: [] - Assessment/Plan Antibiotics: [] Assessment/Plan: [] Active and Suspected Problems (Last Reviewed 12/03/17 @ 18:22 by Mercedez Garza) Hypoxia (Acute) Pneumonia due to COVID-19 virus (Acute) COVID with hypoxia - D-dimer was 0.6. PCT 0.06. On 2L. Day 4 of azithro today. Also on ceftriaxone. Overall low suspicion for CAP on top of covid. Will stop ceftriaxone. Recommend one final dose of azithro tomorrow. Counseled him that should monitor for symptoms and isolate for next 2 weeks starting from date of admission 09/22. Will follow as needed, d/w Dr. Barrera.
[2019-09-25] MEDS: Acetaminophen 325 MG Tablet 650 MG PO (12:52)
[2019-09-26 03:38] VITALS: BP 151/88; PULSE 84; RESP 18; TEMP 38.5; O2SAT 91
[2019-09-26] MEDS: Acetaminophen 325 MG Tablet 650 MG PO (03:40)
[2019-09-26 05:19] VITALS: BP 165/64; PULSE 76; RESP 18; TEMP 36.7; O2SAT 92
[2019-09-26 08:49] VITALS: O2SAT 86; O2SAT 91; O2SAT 92
--- NOTE | 2019-09-26 09:53 | DCINST_ITS ---
- Discharge Diagnoses Current Active Problems: Current Active and Chronic Problems (Last Reviewed 12/03/17 @ 18:22 by Mercedez Garza) Hypoxia (Acute) Pneumonia due to COVID-19 virus (Acute) You will use the following diet at home:: No restrictions Your food should be the consistency of: Regular Your liquids should be the consistency of: Regular/Thin Discharge Activity: Return to Normal Activity Call your doctor if you observe: Fever of 101 or Higher, Shortness of breath Additional Instructions: Oxygen with activity. Isolate with through 10/05. If you need to be around others for any reason, minimize interaction time, maintain distance of 6 feet and wear masks (others should be wearing a mask, too). Allergies/Adverse Reactions: Allergies No Known Allergies Allergy (Verified 09/22/19 20:58) Medications to take at Discharge Albuterol Inhaler [Ventolin Hfa] 2 puff INHALATION Q4H PRN PRN #1 inhaler 09/22/19 Primary Care Physician: Oscar Forte DO [Primary Care Provider] - Within 2 Weeks Test Results: Test results from this visit will be discussed in further detail at your follow- up appointment, if applicable. Please Follow Up With: Weston Land MD - Pulmonology When: 2-4 weeks Proposed Discharge Date: 09/26/19
--- NOTE | 2019-09-26 09:57 | DS.PCM_ITS ---
Discharge Date and Diagnosis - Problem List Patient Problems: Active and Suspected Problems (Last Reviewed 12/03/17 @ 18:22 by Mercedez Garza) Hypoxia (Acute) Pneumonia due to COVID-19 virus (Acute) Date of Admission: 09/23/19 Date of Discharge: 09/26/19 - Primary Discharge Diagnosis Acute Problems: Active Problems (Last Reviewed 12/03/17 @ 18:22 by Mercedez Garza) Hypoxia (Acute) Pneumonia due to COVID-19 virus (Acute) Hospital Course and Treatment Imaging Results: Clinical Impression(s) from Imaging Studies Chest CTA 09/23/19 17:21 IMPRESSION: No demonstrated pulmonary embolism or arterial dissection. Multifocal groundglass opacities associated with minimal dependent consolidation within the lower lobes with an appearance suggestive of multifocal viral pneumonia. Fatty infiltration of the liver Electronically Signed: Mary Ellen Posada MD at 18:32 EDT Tel , Service support , CONNIE Meza Operations: None Procedures: None Summary of Care Provided: The patient is a 59 year old M presents with shortness of breath. Patient had been tested positive for COVID-19 90s prior to admission. Patient had a CTA of his chest that did not show any pulmonary embolism but did show glass opacities. Patient's hospitalization was uncomplicated other than just transient fevers and shortness of breath. Patient was seen in consultation by infectious disease and patient was on antibiotics temporarily but given that these changes are more consistent with COVID-19 those will be discontinued. Patient was evaluate for home oxygen and did drop his pulse ox 86% with activity was around 91 to 92% at rest. Patient will require oxygen at home with activity. Talk to the patient that from a COVID-19 standpoint he should be okay but would expect a slow recovery. I did tell the patient if he starts developing fevers increasing shortness of breath that that could be a sign of a secondary bacterial infection and to be reevaluated at that point time. Patient did have nocturnal pulse ox and for most part his pulse ox looked okay did have some drops below 80% were around 10%. Recommend outpatient follow-up with pulmonology for possible polysomnogram. [] Patient Problems: Active and Suspected Problems (Last Reviewed 08/07/18 @ 18:22 by Mercedez Vega Hypoxia (Acute) Pneumonia due to COVID-19 virus (Acute) - Physical Exam Vitals/I&O's: Vital Signs Temp Pulse Resp BP Pulse Ox 36.7 C 76 18 165/64 H 91 09/26/19 05:19 09/26/19 05:19 09/26/19 05:19 09/26/19 05:19 09/26/19 08:49 Oxygen Flow Rate (L/min) [ 2 AMBULATION with Oxygen] Oxygen Flow Rate (L/min) [ 0 AMBULATING on Room Air] Oxygen Flow Rate (L/min) [At 0 REST on Room Air] Oxygen Flow Rate (L/min) 0 Oxygen Delivery Method Room Air Weight: 108.3 kg Body Mass Index (BMI) 34.2 Intake and Output for Last 24 Hours 09/24/19 09/25/19 09/26/19 23:59 23:59 23:59 Intake Total 650 / 770 360 / 840 600 / 600 Balance 650 / 770 360 / 840 600 / 600 General: Alert, No apparent distress HEENT: Atraumatic, Normocephalic Oral: Moist Mucosa, No Gingival or Mucosal Lesions/ Ulcerations Neck: No Nodes, Thyroid Normal Size and Texture Lungs: Normal air movement, - - Bibasilar crackles Cardiovascular: Regular rate, Regular Rhythm, Normal S1, Normal S2 Psych/Mental Status: Normal Affect, Appropriate Current Medications Acetaminophen (Tylenol) 650 mg PO Q6H PRN PRN PRN Reason: Pain Score 1-10/Temp > 100.7 F Last Admin: 09/26/19 03:40 Dose: 650 mg Documented by: Albuterol Sulfate (Proair Hfa (Sp) Surgery/Vent Pts) 2 puff INHALATION Q4H PRN PRN PRN Reason: Shortness of breath, wheezing Azithromycin (Zithromax) 250 mg PO Q24 COUNT INCLUDES THE [facility] Stop: 09/26/19 23:59 Last Admin: 09/25/19 09:42 Dose: 250 mg Documented by: Enoxaparin Sodium (Lovenox) 40 mg SC BID COUNT INCLUDES THE [facility] Last Admin: 09/25/19 21:28 Dose: 40 mg Documented by: Sodium Chloride () 250 mls @ 15 mls/hr IV .[id number] PRN PRN Reason: Saline Flush Sodium Chloride () 250 mls @ 15 mls/hr IV .[id number] PRN PRN Reason: Additional IVPB Infusion Nutritional Formula (Lactose Free) (Ensure Enlive) 120 ml PO 4X/DAY SADIA Last Admin: 09/25/19 21:26 Dose: 120 ml Documented by: Senna/Docusate Sodium (Senokot-S, Winsome-Colace) 2 tablet PO BID PRN PRN PRN Reason: Constipation Sodium Chloride () 10 - 40 ml IV UD PRN PRN Reason: SALINE FLUSH Last Admin: 09/24/19 03:01 Dose: 10 ml Documented by: Zolpidem Tartrate (Ambien (Generic)) 5 mg PO QHS PRN PRN PRN Reason: INSOMNIA Discharge Diet: No Restrictions Discharge Activity: Return to Normal Activity Call your doctor if you observe: Fever of 101 or Higher, Shortness of breath Home Medications: Medications to take at Discharge Albuterol Inhaler [Ventolin Hfa] 2 puff INHALATION Q4H PRN PRN #1 inhaler 09/22/19 Primary Care Physician: Oscar Forte DO [Primary Care Provider] - Within 2 Weeks Please Follow Up With: Weston Land MD - Pulmonology When: 2-4 weeks Disposition: Home Minutes spent on discharge:: 32 Patient Condition:: Good Medical Necessity - Tobacco Use Smoking Status: Never smoker Meaningful Use Info Meaningful Use Diagnoses (Choose all that apply): None applicable Inpatient E&M: 62713 Disch Hosp
[2019-09-26 10:00] VITALS: BP 150/77; PULSE 82; RESP 14; TEMP 36.9; O2SAT 95
[2019-09-26] MEDS: Azithromycin 250 MG Tablet PO (11:05)
== END 2019-09-26 12:35 | disposition home or self-care (01) | DRG 177 ==
LOC: ED 18:01 → ICU 09-24 00:58
PROVIDERS: Admitting Provider Hospitalist; Emergency Provider Emergency Medicine; PCP Family Medicine
DX: U07.1 COVID-19 (principal); J12.89 Other viral pneumonia; R09.02 Hypoxemia; Z83.3 Family history of diabetes mellitus; Z90.49 Acquired absence of other specified parts of digestive tract
CPT/HCPCS: 71275; 80053; 81001; 82550; 82728; 83605; 83615; 84145; 84484; 85025; 85379; 85610; 85652; 86140; 87040; 93005; 94762; 99251; 99284; J7050; Q9967; A4216; G0463

== ENCOUNTER → 2019-12-02 | Outpatient (CLI) | payer SELFPAY ==
[2019-12-02 15:57] VITALS: BMI 34.2
[2019-12-02 16:27] LABS: Bacteria 0 SEEN /hpf (None Seen); Mucous, Urine 0 SEEN /hpf (<or=2+); Red Blood Cells-Urine 0 SEEN /hpf (0-5); Squamous Epithelial Cells - UA 0 SEEN /hpf (0-5); White Blood Cells 0 SEEN /hpf (0-5)
[2019-12-02 17:19] LABS: Color, Urine Yellow (Yellow); Glucose, Dipstick Normal (Normal); Ketone-Dipstick Negative (Negative); Leukocyte Esterase-Dipstick Negative /ul (Negative); Nitrite-Dipstick Negative (Negative); Occult Blood-Urine Negative /ul (Negative); Protein-Dipstick Negative (Negative); Specific Gravity, Urine 1.015 (1.002-1.030); Urine Bilirubin Dipstick Negative (Negative); Urine Clarity Clear (Clear); Urine Urobilinogen Normal (Normal)
== END | disposition home or self-care (01) ==
LOC: LABSPEC 16:25
PROVIDERS: PCP Family Medicine; Referring Provider Family Medicine; Visit Provider Family Medicine
DX: R80.9 Proteinuria, unspecified (principal)
CPT/HCPCS: 81001

== ENCOUNTER → 2022-06-07 | Outpatient (CLI) | payer SELFPAY, OTHER ==
--- NOTE | 2022-06-07 12:54 | ECHOD_ITS ---
Reason For Study: ARRYTHMIA Procedure This was a 2D Doppler, Color Flow transthoracic echocardiogram. Exam performed in department. Left Ventricle Normal LV size. Mild concentric left ventricular hypertrophy. The left ventricular ejection fraction is 60 %. Right Ventricle Normal right ventricle. Atria The left and right atria are normal. Mitral Valve Trivial mitral valve insufficiency. Tricuspid Valve Trivial tricuspid valve insufficiency. Mild pulmonary hypertension. Right ventricular systolic pressure estimated to be 37 mmHg. Aortic Valve Normal aortic valve. Pulmonic Valve The pulmonic valve is not well visualized. Great Vessels Normal sized aortic root. Pericardium/Pleural No pericardial effusion. MMode/2D Measurements & Calculations LVIDd: 5.1 cm IVSd: 1.2 cm Ao root diam: 3.5 cm LVIDs: 3.1 cm LVPWd: 1.1 cm RVDd: 3.3 cm FS: 40.2 % LAV(MOD-bp): 37.8 ml LVAd ap4: 30.3 cm2 SV(MOD-sp4): 40.1 ml LAV(MOD-bp) Indexed: 16.5 ml/m2 LVLd ap4: 8.4 cm LAV(MOD-sp2): 46.3 ml EDV(MOD-sp4): 88.8 ml LAV(MOD-sp4): 31.4 ml EDV(sp4-el): 92.5 ml LVAs ap4: 20.5 cm2 LVLs ap4: 7.6 cm ESV(MOD-sp4): 48.7 ml ESV(sp4-el): 46.9 ml EF(MOD-sp4): 45.1 % EF(sp4-el): 49.3 % SV(sp4-el): 45.6 ml LA A4 area: 13.8 cm2 LA dimension(2D): 4.4 cm RA A4 area: 14.2 cm2 Time Measurements MV dec time: 0.20 sec Doppler Measurements & Calculations MV E max bam: 59.1 cm/sec Lat Peak E' Bam: 13.1 cm/sec Med Peak E' Bam: 8.2 cm/sec MV A max bam: 65.0 cm/sec E/E' lat: 4.5 E/E' med: 7.2 MV E/A: 0.91 MV V2 max: 63.5 cm/sec Ao V2 max: 139.1 cm/sec MV max P.6 mmHg MV dec slope: 298.7 cm/sec2 Ao max P.8 mmHg MV V2 mean: 39.8 cm/sec Ao V2 mean: 97.3 cm/sec MV mean P.71 mmHg Ao mean P.3 mmHg MV V2 VTI: 27.5 cm Ao V2 VTI: 29.4 cm PA V2 max: 145.6 cm/sec TR max bam: 285.2 cm/sec PA V2 mean: 84.1 cm/sec TR max P.5 mmHg ECHO/Echo Complete Interpretation Summary Mild concentric left ventricular hypertrophy. Mild pulmonary hypertension. Ordering Physician: Rosalia Whitmore Referring Physician: Rosalia Whitmore Performed By: Mikki Lehman RCS
[2022-06-07 14:12] LABS: Anion Gap 10 (5-15); BUN 19 mg/dL (7-18); Chloride 101 mmol/L (98-107); Creatinine, Serum 1.12 mg/dL (0.70-1.30); EST Glomerular Filtration Rate 71 mL/min (>60); Est Glom Filt Rate - Afr Amer 86 mL/min (>60); Glucose 121 mg/dL (74-106); Potassium 3.2 mmol/L (3.5-5.1); Sodium Level 140 mmol/L (136-145)
== END | disposition home or self-care (01) ==
PROVIDERS: PCP Nurse Practitioner Family; Referring Provider Internal Medicine Cardiovascular Disease; Visit Provider Internal Medicine Cardiovascular Disease
DX: I10 Essential (primary) hypertension (principal); I49.3 Ventricular premature depolarization
CPT/HCPCS: 36415; 80048; 93225; 93226; 93306

== ENCOUNTER 2023-08-12 12:32 | Outpatient (CLI) | payer SELFPAY, OTHER ==
--- NOTE | 2023-08-12 13:46 | STRESSREP ---
Stress Test Report Date: 06/13/2023 Procedure: Exercise tolerance test Indications: Arrhythmia Consent: Per the patient Procedure: The patient exercised on a Weston protocol for 9 minutes achieving a peak heart rate of 123 bpm (77% predicted maximal heart rate) with a peak blood pressure 210/94 mmHg and a peak MET capacity of approximately 10.4 MET's. The baseline ECG demonstrated sinus rhythm. The peak exercise ECG demonstrated sinus tachycardia with no ischemic changes. Frequent PVCs noted during the second stage of exercise. Resolved during peak exercise and in recovery. The functional capacity was considered very good. The patient had no complaints of chest discomfort during exercise or recovery. The examination was discontinued secondary to elevated blood pressure. Impression: 1. Technically adequate exercise tolerance test 2. Peak exercise ECG with no ischemic changes 3. PVCs noted during exercise. 4. Baseline hypertension with hypertensive response to exercise This note was generated with Postmasteration software. It may contain incorrect words, spelling, and punctuation that were not noted in checking the note before signing.
[2023-08-12 14:14] LABS: ALB/GLOB Ratio 1.1 RATIO (0.9-2.4); AST(SGOT) 24 U/L (15-37); Alanine Aminotransfer ALT/SGPT 42 U/L (16-61); Albumin, Serum 3.9 g/dL (3.2-5.0); Alkaline Phosphatase 64 U/L (45-117); Anion Gap 7 (5-15); BUN 15 mg/dL (7-18); BUN/Creat Ratio 12.3 RATIO (10-20); Calcium,Total 9.1 mg/dL (8.5-10.1); Chloride 107 mmol/L (98-107); Cholesterol 200 mg/dL (200); Creatinine, Serum 1.22 mg/dL (0.70-1.30); EST Glomerular Filtration Rate 64 mL/min (>60); Est Glom Filt Rate - Afr Amer 78 mL/min (>60); Globulin 3.7 g/dL (2.2-4.2); Glucose 96 mg/dL (74-106); High Density Lipoprotein 52 mg/dL; Magnesium 2.2 mg/dL (1.6-2.6); Potassium 3.8 mmol/L (3.5-5.1); Protein, Total 7.6 g/dL (6.4-8.2); Sodium Level 140 mmol/L (136-145); Thyroid Stim Hormone (TSH) 1.68 uIU/mL (0.358-3.74); Triglycerides 197 mg/dL; Very Low Density Lipoprotein 39 mg/dL (5-40)
== END 2023-08-12 23:59 | disposition home or self-care (01) ==
PROVIDERS: PCP Nurse Practitioner Family; Referring Provider Internal Medicine Cardiovascular Disease; Visit Provider Internal Medicine Cardiovascular Disease
DX: I27.20 Pulmonary hypertension, unspecified (principal); E66.9 Obesity, unspecified; I10 Essential (primary) hypertension; I49.3 Ventricular premature depolarization; E78.00 Pure hypercholesterolemia, unspecified; R09.02 Hypoxemia; Z86.16 Personal history of COVID-19
CPT/HCPCS: 36415; 80053; 80061; 83735; 84443; 93017